=== PATIENT | male | born 1965 | race Caucasian/White ===

== ENCOUNTER 2017-01-15 13:24 | Emergency (ER) | payer OTHER ==
[~2017-01-15] VITALS: Ht 172.7 cm; Wt 105.9 kg
[~2017-01-15 13:24] MED LIST: ALLEGRA-D 121 TABLET PO; ANTIBIOTIC PO; LEVAQUIN750 MG PO; LORTAB 5-325 M1 EACH PO; MOTRIN600 MG PO; TESSALON PERLE100 MG PO; TYLENOL WITH C1 EACH PO
[2017-01-15] MEDS ORDERED: PERCOCET 5/31 TABLET PO (16:08)
[2017-01-15 17:10] VITALS: BP 154/98
== END 2017-01-15 17:11 | disposition home or self-care (01) ==
LOC: EME → EDBD 13:24 → EME 13:24
DX: S70.11XA Contusion of right thigh, initial encounter (principal); S70.311A Abrasion, right thigh, initial encounter; W23.1XXA Caught, crushed, jammed, or pinched between stationary objects, initial encounter; Y93.89 Activity, other specified; I10 Essential (primary) hypertension
CPT/HCPCS: 73502; 73552; 73590; 99281; 99284; J2270; J2405